=== PATIENT | male | born 1990 ===

== ENCOUNTER 2024-10-18 18:51 | Emergency (ER) | payer SELFPAY ==
[~2024-10-18] VITALS: Ht 188 cm; Wt 100.0 kg
[2024-10-18 18:56] VITALS: TEMP 98.9
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
[2024-10-18] MEDS: ketamine 50 mg/ml 10ml vial IM ONE (20:42)
--- NOTE | 2024-10-18 21:53 | RADIOLOGY REPORT ---
EXAM: CT CT HEAD INDICATION: head injury [facility] TECHNIQUE: CT of the head without intravenous contrast. Radiation Dose : 1. Head: CT Dose: CTDI volume is 72 mGy. Dose-length product is 1596 mGy*cm The dose indicators for CT are the volume Computed Tomography (CT) Dose Index (CTDIvol) and the Dose Length Product (DLP), and are measured in units of mGy and mGy-cm, respectively. These indicators are not patient dose, but values generated from the CT scanner acquisition factors. The report includes radiation exposure data for exposures received during this examination. COMPARISON: None FINDINGS: There is no evidence of acute intracranial hemorrhage, extra-axial collection, mass effect, midline s hift, herniation or hydrocephalus. The ventricles, sulci and cisterns are age appropriate. The baldwin-white differentiation is intact. Patchy periventricular and subcortical white matter hypoattenuation is nonspecific but may be related to small vessel ischemic disease. Bilateral maxillary sinus disease. Orbits are normal. The surrounding soft tissues and osseous structures are unremarkable. IMPRESSION: No acute intracranial abnormality. Limited evaluation due to patient positioning.
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
[2024-10-18 22:46] VITALS: BP 134/93; PULSE 89; RESP 19; O2SAT 96
== END 2024-10-18 22:48 ==
LOC: ER 18:52
DX: S00.31XA Abrasion of nose, initial encounter (principal); R51.9 Headache, unspecified; X58.XXXA Exposure to other specified factors, initial encounter; Y93.89 Activity, other specified; Y92.89 Other specified places as the place of occurrence of the external cause; Y99.8 Other external cause status
CPT/HCPCS: 70450; 70486; 72125; 96372; 99285; J3490